=== PATIENT | female | born 1985 | race Two or more races ===

== ENCOUNTER 2020-12-15 11:43 | Outpatient (REF) | payer OTHER, SELFPAY ==
[2020-12-15 14:14] LABS: Blood Urea Nitrogen 16 mg/dL (9-16); Estimated Glomerular Filt Rate > 60
== END 2020-12-15 11:44 | disposition home or self-care (01) ==
LOC: HO.10HDL 11:43
PROVIDERS: Visit Provider Otolaryngology
DX: Z01.812 Encounter for preprocedural laboratory examination (principal); R42 Dizziness and giddiness
CPT/HCPCS: 36415; 82565; 84520